=== PATIENT | male | born 1990 | race Caucasian/White ===

== ENCOUNTER 2017-05-15 17:31 | Emergency (ER) | payer MEDICAID ==
[~2017-05-15] VITALS: Ht 172.7 cm; Wt 91.0 kg
[2017-05-15] MEDS ORDERED: azo (17:40)
[2017-05-15] MEDS ORDERED: tyleno (17:40)
[2017-05-15 20:14] LABS: CLARITY URINE CLEAR (CLEAR); COLOR URINE YELLOW (YELLOW); KETONES URINE NEGATIVE (NEGATIVE); LEUKOCYTE ESTERASE URINE 2+ (NEGATIVE); NITRITE URINE NEGATIVE (NEGATIVE); OCCULT BLOOD URINE 2+ (NEGATIVE); PH URINE 5.5 (4.5-8.0); PROTEIN URINE 1+ (NEGATIVE); SPECIFIC GRAVITY URINE 1.019 (1.005-1.030)
[2017-05-15 20:31] LABS: BASOPHILS % 0.6 % (0.0-2.0); EOSINOPHILS % 0.4 % (0.0-5.0); HEMATOCRIT. 40.8 % (42.0-52.0); LYMPHOCYTES % 14.1 % (20.0-50.0); MEAN CORPUSCULAR HEMOGLOBIN 29.6 pg (28.0-32.0); MEAN PLATELET VOLUME 6.8 fl (7.4-10.4); MONOCYTES % 5.7 % (2.0-8.0); NEUTROPHILS % 79.2 % (40.0-76.0); PLATELET 336 x1000/uL (130-400); RED BLOOD CELL COUNT 4.74 mill/uL (4.7-6.1); RED CELL DISTRIBUTION WIDTH 13.8 % (11.6-14.6)
[2017-05-15 20:45] LABS: CHLORIDE 100 mEq/L (98-107)
[2017-05-15 20:54] LABS: CREATINE KINASE 129 IU/L (39-308)
[2017-05-15 21:40] VITALS: BP 118/82
== END 2017-05-15 21:40 | disposition home or self-care (01) ==
LOC: ER 17:31
DX: N39.0 Urinary tract infection, site not specified (principal); M79.1 Myalgia; F12.10 Cannabis abuse, uncomplicated; F15.10 Other stimulant abuse, uncomplicated; F17.200 Nicotine dependence, unspecified, uncomplicated
CPT/HCPCS: 36415; 80048; 81003; 82550; 85025; 99284

== ENCOUNTER 2018-12-01 15:52 | Emergency (ER) | payer MEDICAID ==
[~2018-12-01] VITALS: Ht 175.3 cm; Wt 93.0 kg
[~2018-12-01 15:52] MED LIST: azo; tyleno
[2018-12-01 16:18] VITALS: BP 151/95
== END 2018-12-01 18:16 | disposition home or self-care (01) ==
LOC: ER 15:52
DX: L03.115 Cellulitis of right lower limb (principal); R03.0 Elevated blood-pressure reading, without diagnosis of hypertension
CPT/HCPCS: 99283

== ENCOUNTER 2019-05-15 21:46 | Emergency (ER) | payer MEDICAID ==
[~2019-05-15] VITALS: Ht 175.3 cm; Wt 92.0 kg
[2019-05-15] MEDS ORDERED: KETOROLAC 60MG/2ML VIAL IM ONE (22:30)
[2019-05-16 00:58] VITALS: BP 133/72
== END 2019-05-16 01:01 | disposition home or self-care (01) ==
LOC: ER 21:46
DX: M25.572 Pain in left ankle and joints of left foot (principal); M79.672 Pain in left foot; F12.10 Cannabis abuse, uncomplicated
CPT/HCPCS: 73610; 73630; 96372; 99284; J1885